=== PATIENT | male | born 1985 | race Caucasian/White ===

== ENCOUNTER 2016-04-18 20:44 | Emergency (ER) | payer MEDICAID ==
[~2016-04-18] VITALS: Ht 188 cm; Wt 88.0 kg
[2016-04-18 20:46] VITALS: BP 147/95; PULSE 95; RESP 16; TEMP 98; O2SAT 98
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
== END 2016-04-18 21:45 | disposition left against medical advice (07) ==
LOC: NEPB 20:44
DX: M79.641 Pain in right hand (principal); Y04.0XXA Assault by unarmed brawl or fight, initial encounter; Z72.0 Tobacco use
CPT/HCPCS: 99282

== ENCOUNTER 2016-04-20 15:41 | Emergency (ER) | payer MEDICAID ==
[~2016-04-20] VITALS: Ht 188 cm; Wt 83.7 kg
[2016-04-20 15:53] VITALS: BP 141/78; PULSE 56; RESP 18; TEMP 98.1; O2SAT 97
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
[2016-04-20] MEDS ORDERED: TRAM50TA PO (17:56)
[2016-04-20] MEDS ORDERED: IBUP800T23 PO (18:43)
[2016-04-20] MEDS ORDERED: MORPHINE SULFATE 4 MG/ML INJ IV PUSH ONE (18:45)
[2016-04-20] MEDS ORDERED: ACETAMINOPHEN/HYDROcodone 325 MG/5 MG TAB PO ONE (18:45)
[2016-04-20] MEDS ORDERED: ONDANSETRON HCL 4 MG/2 ML VIAL IV PUSH ONE (18:45)
== END 2016-04-20 18:57 | disposition home or self-care (01) ==
LOC: PHED 15:41 → PHEFT 18:57
DX: S62.201A Unspecified fracture of first metacarpal bone, right hand, initial encounter for closed fracture (principal); W51.XXXA Accidental striking against or bumped into by another person, initial encounter; Z72.0 Tobacco use
CPT/HCPCS: 29125; 73130